=== PATIENT | female | born 1990 | race American Indian/Alaskan Native ===

== ENCOUNTER 2017-06-11 20:04 | Emergency (ER) | payer SELFPAY ==
[2017-05-15 14:05] VITALS: BMI 35.0
--- NOTE | 2017-06-11 21:27 | OBHP ---
Datetime: 06/11/2017 21:10 IP Adm Impression: , intrauterine IP Admit Plan: Discharge home Admit Comment, IP Provider: 27 yo at 34+4 wks w/ EDC 07/19/2017 w/ pubic symphysis separatio n who reports that she has a sharp piecing pain in the vagina that started on 06/03/2017. Pt reports that she was dancing at her baby shower on 06/03/2017. Pt reports that she took tylenol the day aft er the shower w/ no relief. Pt reports that she is wearing a maternity brace but is considering span x for a tighter brace. Pt also reports that she may talk to Dr. Gonzalez, her OB about stopping wor k soon due to her pain. 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 N ST reactive. Rec that she rest, consider applying ice or heat to her pubic symphysis for relief, als o t/c seeing PT. Pt will continue using brace and may see if spanx are a better brace. Extremities - PN: Normal Abdomen - PN: Normal General - PN: Normal FHR - Baseline A Provider: 140's Contraction Comments Provider: occasional/ artifact EGA AdmitDate IP: 34.4 Vital Signs Provider: Reviewed IP Chief Complaint: Maternal discomfort NICHD Variability Prov Fetus A: Moderate 6-25bpm NICHD Accel Fetus A IP Provider: 15X15 NICHD Decel Fetus A IP Provider: None Dilatation, Provider: 0 Effacement, Provider: 0 Station, Provider: -3 Genitourinary Exam: Normal
[2017-06-12 02:12] VITALS: BP 127/69; PULSE 75; RESP 20; TEMP 98.3; O2SAT 99
== END 2017-06-11 21:05 | disposition home or self-care (01) ==
LOC: H.EROB2 20:04
DX: O26.93 Pregnancy related conditions, unspecified, third trimester (principal); R10.2 Pelvic and perineal pain; O09.93 Supervision of high risk pregnancy, unspecified, third trimester; Z3A.34 34 weeks gestation of pregnancy

== ENCOUNTER 2017-06-20 11:33 | Emergency (ER) | payer SELFPAY ==
[2017-06-20 12:29] VITALS: BMI 37.9
[2017-06-20 12:59] LABS: RBC URINE 3 /hpf (0-3); TRANSITIONAL EPITHIAL 5 /hpf (0-3); URINE BACTERIA FEW (<OCC); URINE BILIRUBIN NEGATIVE (NEGATIVE); URINE BLOOD SMALL (NEGATIVE); URINE COLOR YELLOW (YELLOW); URINE GLUCOSE (UA) NEG (Normal); URINE KETONE NEGATIVE (NEGATIVE); URINE LEUKOCYTE ESTERASE LARGE Leu/uL (Negative); URINE PROTEIN 30 mg/dL (NEGATIVE); URINE UROBILINOGEN 0.2-1.0 mg/dL (0.2-1.0); WBC URINE 9 /hpf (0-5)
[2017-06-20 19:12] VITALS: BP 126/66; PULSE 68; O2SAT 98
--- NOTE | 2017-06-21 06:54 | OBDCSUM ---
Datetime: 06/20/2017 13:18 Discharge Instructions, Provider: Routine instructions given Discharge Diagnosis, Provider: False Labor - Undelivered Discharge Comment, Provider: BP rev'd...spoke to 5 office They will call pt for appt next week. P re-eclampsia warning
== END 2017-06-20 13:30 | disposition home or self-care (01) ==
LOC: H.EROB2 11:33
DX: O47.03 False labor before 37 completed weeks of gestation, third trimester (principal); Z3A.35 35 weeks gestation of pregnancy; O26.93 Pregnancy related conditions, unspecified, third trimester; R10.2 Pelvic and perineal pain

== ENCOUNTER 2017-07-11 00:12 | Inpatient (IN) | payer BC ==
[2017-07-11 00:43] VITALS: BMI 38.9
[2017-07-11] MEDS ORDERED: Nalbuphine 20 mg/ml Inj (1 ml) IVP PRN (00:47)
--- NOTE | 2017-07-11 01:25 | OBHP ---
Datetime: 07/11/2017 01:24 IP Adm Impression: Term, intrauterine IP Admit Plan: Admit to unit Admit Comment, IP Provider: CHIEF COMPLAINT: LOF, CTX HPI: 27 yo at 38.6 wks GA with EDC by us + ROM, FM, CTX She shares that 2 hours prior to arriving, she experienced LOF like water gushing from her vagina, approximately 30 minutes after, she began experiencing contractions approximately every 5 minutes. last U/06/27/2017 last visit 07/11/2017 GBS neg PNC: Dr. 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 Lungs: clear to auscultation bilaterally, no wheezing Abdomen: nontender, gravid CVA: negative Lower extremities: negative for pitting edema SSE/PELVIC EXN: pooling of clear fluid MONITOR: Variablity: moderate: 6-25 bpm ACC: 15x15 DECC: none FHR: 170 ASSESSMENT: 27 yo IUP at 38.6 wks with h/o asthma admitted for normal progression of labor. PLAN:cbc, t_s, hiv, rpr, Case d/w Dr. Mimi Bob MD Family Medicine, PGY1 OB Hospitalist Addendum: Pt seen and examined by me. 27 yo at 38+6 wks c/o LOF at 10:07 p m and ctxns started at 11 pm. Gen'l: pt appears uncomfortable, grossly ruptured for clear fluid. VE : 1-2/ 70/-2. Pt admitted to L_D. Will give nubaine for pain. GBS negative. FHT reactive. (ES) Extremities - PN: Normal Abdomen - PN: Normal Back - PN: Normal Lungs - PN: Normal Heart - PN: Normal Neurologic - PN: Normal General - PN: Normal FHR - Baseline A Provider: 140's Amniotic Fluid Color, Provider: Clear Membranes, Provider: Ruptured Nitrazine Provider: Positive EGA AdmitDate IP: 38.6 IP Indication for Induction: Not Applicable IP Chief Complaint: Uterine contractions; Suspected ruptured membranes NICHD Variability Prov Fetus A: Moderate 6-25bpm NICHD Accel Fetus A IP Provider: 15X15 FHR Category Provider Fetus A: Category I NICHD Decel Fetus A IP Provider: None Dilatation, Provider: 1-2 Effacement, Provider: 70 Station, Provider: -2 Genitourinary Exam: Normal Datetime: 07/11/2017 00:15 Pelvic Type - PN: Adequate Breast - PN: Not Done Thyroid - PN: Not Done HEENT - PN: Normal Presentation-Admit: Vertex Gestation - Est Wks by US: 38.6 Pool Provider: Positive Vital Signs Provider: Reviewed DTRs - PN: Not Done Datetime: 06/20/2017 12:00 Comments, ACOG Physical Exam: ROS: General: no fatigue; no weakness HEENT: no CARRILLO; no visual dist RESP: no cough; no SOB CV: no CP; no palpitations GI: no N/V/D : no F/U/D MS: no joint pain IP Hx Assessment: The History has been Reviewed and is Current
--- NOTE | 2017-07-11 01:28 | OBADHP ---
Datetime: 07/11/2017 01:24 Admit Comment, IP Provider: CHIEF COMPLAINT: LOF, CTX HPI: 27 yo at 38.6 wks GA with EDC by us + ROM, FM, CTX She shares that 2 hours prior to arriving, she experienced LOF like water gushing from her vagina, approximately 30 minutes after, she began experiencing contractions approximately every 5 minutes. last U/06/27/2017 last visit 07/11/2017 GBS neg PNC: Dr. 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 Lungs: clear to auscultation bilaterally, no wheezing Abdomen: nontender, gravid CVA: negative Lower extremities: negative for pitting edema SSE/PELVIC EXN: pooling of clear fluid MONITOR: Variablity: moderate: 6-25 bpm ACC: 15x15 DECC: none FHR: 170 ASSESSMENT: 27 yo IUP at 38.6 wks with h/o asthma admitted for normal progression of labor. PLAN:cbc, t_s, hiv, rpr, Case d/w Dr. Mimi Bob MD Family Medicine, PGY1 OB Hospitalist Addendum: Pt seen and examined by me. 27 yo at 38+6 wks c/o LOF at 10:07 p m and ctxns started at 11 pm. Gen'l: pt appears uncomfortable, grossly ruptured for clear fluid. VE : 1-2/ 70/-2. Pt admitted to L_D. Will give nubaine for pain. GBS negative. FHT reactive. (ES) Extremities - PN: Normal Abdomen - PN: Normal Back - PN: Normal Lungs - PN: Normal Heart - PN: Normal Neurologic - PN: Normal General - PN: Normal FHR - Baseline A Provider: 140's Amniotic Fluid Color, Provider: Clear Membranes, Provider: Ruptured Nitrazine Provider: Positive IP Chief Complaint: Uterine contractions; Suspected ruptured membranes NICHD Variability Prov Fetus A: Moderate 6-25bpm NICHD Accel Fetus A IP Provider: 15X15 FHR Category Provider Fetus A: Category I NICHD Decel Fetus A IP Provider: None Dilatation, Provider: 1-2 Effacement, Provider: 70 Station, Provider: -2 Genitourinary Exam: Normal EGA AdmitDate IP: 38.6 IP Adm Impression: Term, intrauterine IP Admit Plan: Admit to unit Datetime: 07/11/2017 00:15 Pelvic Type - PN: Adequate Breast - PN: Not Done Thyroid - PN: Not Done HEENT - PN: Normal Presentation-Admit: Vertex Gestation - Est Wks by US: 38.6 Pool Provider: Positive Vital Signs Provider: Reviewed DTRs - PN: Not Done Datetime: 06/20/2017 12:00 Comments, ACOG Physical Exam: ROS: General: no fatigue; no weakness HEENT: no CARRILLO; no visual dist RESP: no cough; no SOB CV: no CP; no palpitations GI: no N/V/D : no F/U/D MS: no joint pain IP Hx Assessment: The History has been Reviewed and is Current Datetime: 06/11/2017 21:10 Contraction Comments Provider: occasional/ artifact
[2017-07-11 01:53] LABS: BASO # 0.1 K/uL (0.0-0.2); BASO % 0.8 % (0.0-2.0); EOS # 0.1 K/uL (0.0-0.7); EOS % 0.8 % (0.0-4.0); LYMPH # 2.8 K/uL (1.0-4.3); LYMPH % 32.1 % (20.0-40.0); MEAN CELL VOLUME 86.3 fl (81.0-99.0); MEAN CORPUSCULAR HEMOGLOBIN 28.2 pg (27.0-31.0); MEAN CORPUSCULAR HGB CONC 32.7 g/dL (33.0-37.0); MEAN PLATELET VOLUME 10.6 fl (7.2-11.7); MONO # 0.7 K/uL (0.0-0.8); MONO % 8.4 % (0.0-10.0); NEUT % 57.9 % (50.0-75.0); RBC 4.24 Mil/uL (3.80-5.20); RED CELL DISTRIBUTION WIDTH 14.8 % (11.5-14.5); WHITE BLOOD COUNT 8.6 K/uL (4.8-10.8)
[2017-07-11] MEDS: Lactated Ringer's 1,000 ML IV SCH ×2 (03:50→04:10)
[2017-07-11] MEDS ORDERED: Fentanyl/Bupivacaine HCl 250 ML EPI ONE (04:28)
[2017-07-11] MEDS ORDERED: Bupivacaine HCl 0.25% PF (10 ml) Inj ONE (04:29)
[2017-07-11] MEDS ORDERED: Lactated Ringer's 1,000 ML IV SCH (05:15)
[2017-07-11] MEDS ORDERED: Oxytocin 30 UNITS in Sodium Chloride 0.9% 500 ML IV SCH (08:30)
--- NOTE | 2017-07-11 12:07 | OBPN ---
Datetime: 07/11/2017 12:00 IP Progress Impression: Normal progression of labor; Reassuring heart rate IP Informed Consent Obtain: Vaginal Delivery; Risks, Benefits and Alternatives Discussed IP Progress Plan: Continue present management; Augmentation Pool Provider: Positive Membranes, Provider: Ruptured Amniotic Fluid Color, Provider: Clear Contraction Comments Provider: 2-4m FHR - Baseline A Provider: 150 Presentation-Admit: Vertex NICHD Accel Fetus A IP Provider: 15X15 FHR Category Provider Fetus A: Category II NICHD Variability Prov Fetus A: Moderate 6-25bpm Dilatation, Provider: 6 Effacement, Provider: 100 Station, Provider: 0 NICHD Decel Fetus A IP Provider: Early Datetime: 07/11/2017 08:15 IP Progress Impression Other: Latent phase of labor IP Progress Note Comment: Last sono jul 06 7lb 10oz She was admitted by Dr Le. CHARLENE at term. 3cm earlier. A: Latent phase of labor PLAN: C chart rev'd Discussion with patient about labor, delivyer and pain management. agreed to Pitocin augmentation Datetime: 07/11/2017 01:24 Nitrazine Provider: Positive Datetime: 07/11/2017 00:15 Gestation - Est Wks by US: 38.6 Vital Signs Provider: Reviewed
[2017-07-11] MEDS ORDERED: Oxycodone/Acetaminophen 5/325 mg Tab PO PRN (16:06)
[2017-07-11] MEDS ORDERED: Oxytocin 30 UNITS in Sodium Chloride 0.9% 500 ML IV ONE (17:06)
[2017-07-11] MEDS ORDERED: Benzocaine/Menthol SPRAY TOP PRN (21:13)
[2017-07-12 07:08] LABS: MEAN CORPUSCULAR HEMOGLOBIN 28.8 pg (27.0-31.0); MEAN CORPUSCULAR HGB CONC 33.9 g/dL (33.0-37.0); RBC 3.47 Mil/uL (3.80-5.20); RED CELL DISTRIBUTION WIDTH 15.2 % (11.5-14.5); WHITE BLOOD COUNT 13.7 K/uL (4.8-10.8)
--- NOTE | 2017-07-12 07:25 | OBDS ---
DELIVERY PERSONNEL Delivery Doctor: Prisca Bazan DO Telegraph Inspector: Nelia Yip RN Anesthesiologist: Resident: na MATERNAL INFORMATION Delivery Anesthesia: Local; Epidural Medications in Delivery: Pitocin 30 unit in 500cc LR Estimated Blood Loss (ml): 200 Placenta Cultured: No Maternal Complications: None RN Comments: tolerated well by pt.Delivery attended by .No acute distress noted. Provider Comments: Over intact perineum, of live infant from cephalic presentation. was crying spontaneously and bulb suctioned - 9,9. Delayed cord clamping and [id number] were do ne. Placenta was delivered intact spontaneously. She remained stable. EBL 200cc LABOR SUMMARY EDC: 07/19/2017 00:00 No. Babies in Womb: 1 Attempted: No Labor Anesthesia: Epidural LABOR INFORMATION Reason for Induction: Not Applicable Onset of Labor: 07/11/2017 04:00 Complete Dilatation: 07/11/2017 13:00 Oxytocin: Augmentation Group B Beta Strep: Negative Antibiotics # of Doses: 0 Antibiotics Time of Last Dose: na Steroids Given: None Reason Steroids Not Administered: Not Applicable MEMBRANES Membranes Rupture Method: Spontaneous Rupture of Membranes: 07/10/2017 22:07 Amniotic Fluid Color: Clear Amniotic Fluid Amount: Small Amniotic Fluid Odor: Normal VAGINAL DELIVERY Episiotomy: None Laceration Extension: First Degree Laceration Type: Perineal Laceration Repair: Yes Laceration Repair Note: 1% Lidocaine was infiltrated (3-4cc). First degree perineal laceration was repaired with 2.0 Vicryl Rapide suture. Initial Vag Sponge Count: 5 Final Vag Sponge Count: 5 Initial Vag Sharps Count: 3 Final Vag Sharps Count: 3 Sponge Count Correct: Yes Sharps Count Correct: Yes Count Comment: one syringe 3 suture needles 5 lap pads BABY A INFORMATION Delivery Date/Time: 07/11/2017 15:41 Method of Delivery: Vaginal Born in Route : No : N/A Forceps: N/A Vacuum Extraction: N/A Shoulder Dystocia : No SHOULDER DYSTOCIA BABY A Delivery Date/Time: 07/11/2017 15:41 PRESENTATION/POSITION BABY A Presentation: Cephalic Breech Presentation: N/A PLACENTA INFORMATION BABY A Placenta Delivery Time : 07/11/2017 15:54 Placenta Method of Delivery: Spontaneous Placenta Status: Delivered SCORES BABY A Heart Rate 1 min: >100 bpm Resp Effort 1 min: Good Cry Reflex Irritability 1 min: Cough or Sneeze or Pulls Away Muscle Tone 1 min: Active Motion Color 1 min: Body [place], Extremities Blue Resuscitation Effort 1 min: Tactile Stimulation Heart Rate 5 min: >100 bpm Resp Effort 5 min: Good Cry Reflex Irritability 5 min: Cough or Sneeze or Pulls Away Muscle Tone 5 min: Active Motion Color 5 min: Body [place], Extremities Blue Resuscitation Effort 5 min: Tactile Stimulation INFORMATION BABY A Gestational Age at Delivery: 38.6 Gestational Status: Term Infant Outcome : Liveborn Infant Condition : Stable Infant Sex: Female IDENTIFICATION/MEDS BABY A ID Band Number: [id number] ID Band Location: Left Leg; Left Arm Vitamin K Given : Not Given Erythromycin Given: Not Given WEIGHT/LENGTH BABY A Birthweight (gms): 3105 Infant Length Inches: 19.50 CORD INFORMATION BABY A No. 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
--- NOTE | 2017-07-12 07:26 | OBDS ---
DELIVERY PERSONNEL Delivery Doctor: Prisca Bazan DO Senior Education Specialist: Nelia Yip RN Anesthesiologist: Resident: na MATERNAL INFORMATION Delivery Anesthesia: Local; Epidural Medications in Delivery: Pitocin 30 unit in 500cc LR Estimated Blood Loss (ml): 200 Placenta Cultured: No Maternal Complications: None RN Comments: tolerated well by pt.Delivery attended by .No acute distress noted. Provider Comments: Over intact perineum, of live infant from cephalic presentation. was crying spontaneously and bulb suctioned - 9,9. Delayed cord clamping and [id number] were do ne. Placenta was delivered intact spontaneously. She remained stable. EBL 200cc LABOR SUMMARY EDC: 07/19/2017 00:00 EDC: 07/19/2017 00:00 EDC: 07/19/2017 00:00 No. Babies in Womb: 1 Attempted: No Labor Anesthesia: Epidural LABOR INFORMATION Reason for Induction: Not Applicable Onset of Labor: 07/11/2017 04:00 Complete Dilatation: 07/11/2017 13:00 Oxytocin: Augmentation Group B Beta Strep: Negative Antibiotics # of Doses: 0 Antibiotics Time of Last Dose: na Steroids Given: None Reason Steroids Not Administered: Not Applicable MEMBRANES Membranes Rupture Method: Spontaneous Membranes Rupture Method: Spontaneous Membranes Rupture Method: Spontaneous Rupture of Membranes: 07/10/2017 22:07 Rupture of Membranes: 07/10/2017 22:07 Rupture of Membranes: 07/10/2017 22:07 Length of Rupture (hrs): 17.57 Length of Rupture (hrs): 17.57 Length of Rupture (hrs): 17.57 Amniotic Fluid Color: Clear Amniotic Fluid Color: Clear Amniotic Fluid Color: Clear Amniotic Fluid Amount: Small Amniotic Fluid Amount: Small Amniotic Fluid Amount: Moderate Amniotic Fluid Odor: Normal Amniotic Fluid Odor: Normal Amniotic Fluid Odor: Normal STAGES OF LABOR Stage 1 hrs: 9 Stage 1 min: 0 Stage 2 hrs: 2 Stage 2 min: 41 Stage 3 hrs: 0 Stage 3 min: 13 Total Time in Labor hrs: 11 Total Time in Labor min: 54 VAGINAL DELIVERY Episiotomy: None Laceration Extension: First Degree Laceration Type: Perineal Laceration Repair: Yes Laceration Repair Note: 1% Lidocaine was infiltrated (3-4cc). First degree perineal laceration was repaired with 2.0 Vicryl Rapide suture. Initial Vag Sponge Count: 5 Final Vag Sponge Count: 5 Initial Vag Sharps Count: 3 Final Vag Sharps Count: 3 Sponge Count Correct: Yes Sharps Count Correct: Yes Count Comment: one syringe 3 suture needles 5 lap pads BABY A INFORMATION Delivery Date/Time: 07/11/2017 15:41 Method of Delivery: Vaginal Born in Route : No : N/A Forceps: N/A Vacuum Extraction: N/A Shoulder Dystocia : No SHOULDER DYSTOCIA BABY A Delivery Date/Time: 07/11/2017 15:41 PRESENTATION/POSITION BABY A Presentation: Cephalic Breech Presentation: N/A PLACENTA INFORMATION BABY A Placenta Delivery Time : 07/11/2017 15:54 Placenta Method of Delivery: Spontaneous Placenta Status: Delivered SCORES BABY A Heart Rate 1 min: >100 bpm Resp Effort 1 min: Good Cry Reflex Irritability 1 min: Cough or Sneeze or Pulls Away Muscle Tone 1 min: Active Motion Color 1 min: Body [place], Extremities Blue Resuscitation Effort 1 min: Tactile Stimulation SCORE 1 MIN: 9 Heart Rate 5 min: >100 bpm Resp Effort 5 min: Good Cry Reflex Irritability 5 min: Cough or Sneeze or Pulls Away Muscle Tone 5 min: Active Motion Color 5 min: Body [place], Extremities Blue Resuscitation Effort 5 min: Tactile Stimulation SCORE 5 MIN: 9 INFANT INFORMATION BABY A Gestational Age at Delivery: 38.6 Gestational Status: Term Infant Outcome : Liveborn Condition : Stable Sex: Female IDENTIFICATION/MEDS BABY A ID Band Number: [id number] ID Band Location: Left Leg; Left Arm Vitamin K Given : Not Given Erythromycin Given: Not Given WEIGHT/LENGTH BABY A Infant Birthweight (gms): 3105 Weight (lb): 6 Weight (oz): 13 Length Inches: 19.50 Infant Length cms: 49.5 CORD INFORMATION BABY A No. Cord Vessels: 3 Nuchal Cord : N/A Cord Blood Taken: Yes Suction: Mouth ASSESSMENT BABY A Infant Complications: None Physical Findings at Delivery: Within Normal Limits Infant Respirations: Appears Normal Electrical Products Engineer/ALS Called : No Care By: IsabelRn Transferred To: Remains with Mother
--- NOTE | 2017-07-12 12:01 | OBPPN ---
Datetime: 07/12/2017 11:58 PP Pain Prov: Within normal limits PP Nausea Prov: Denies PP Flatus Prov: Yes PP Breasts Prov: Not Done PP Heart Prov: Normal PP Lungs Prov: Normal PP Abdomen/Uterus Prov: Normal PP Lochia Prov: Not Done PP Vulva/Perineum Prov: Not Done PP CVA Tenderness Prov: Normal PP Extremities Prov: Normal PP Impression Prov: Normal progression PP Plan Prov: Continue present management PP Progress Note Prov: Patient doing well ambulating tolerating diet and voiding without difficulty reports minimal lochia Vital signs stable afebrile Uterus firm below the umbilicus Extremities no Homans Encourage ambulation, regular diet analgesia as needed, anticipate discharge in a.m.
[2017-07-13] MEDS ORDERED: PRENATAL VIT CALC IRON FOLIC PO SCH (09:00)
[2017-07-13] MEDS ORDERED: Prenatal Multivit/Folic Acid/Iron Tab PO SCH (09:00)
[2017-07-13 22:04] VITALS: BP 138/79; PULSE 74; RESP 20; TEMP 97.7; O2SAT 100
--- NOTE | 2017-07-14 09:58 | OBDCSUM ---
Datetime: 07/13/2017 10:56 Discharge Instructions, Provider: Routine instructions given Discharge Diagnosis, Provider: Term Delivered Contraception discussed, Prov: Yes
--- NOTE | 2017-07-14 09:58 | OBPPN ---
Datetime: 07/13/2017 09:55 PP Pain Prov: Within normal limits PP Nausea Prov: Denies PP Flatus Prov: Yes PP Breasts Prov: Normal PP Heart Prov: Normal PP Lungs Prov: Normal PP Abdomen/Uterus Prov: Normal PP Lochia Prov: Normal PP Vulva/Perineum Prov: Normal PP CVA Tenderness Prov: Normal PP Extremities Prov: Normal PP C/S Incision Prov: Not Applicable PP Impression Prov: Normal progression PP Plan Prov: Continue present management; Discharge PP Progress Note Prov: day #2 status post normal spontaneous vaginal delivery, recovering well Plan to discharge patient home today with precautions Patient will return to office in 6 weeks for checkup IP PP Procedures: None Vital Signs Provider PP: Reviewed; Within Normal Limits
== END 2017-07-13 14:35 | disposition home or self-care (01) | DRG 775 ==
LOC: H.EROB2 00:12 → H.L&D 00:54 → H.OB/GYN 18:04
PROVIDERS: ADMIT Obstetrics & Gynecology; ATTEND Obstetrics & Gynecology
PROC: 10E0XZZ Delivery of Products of Conception, External Approach (ICD-10-PCS; principal; 2017-07-11)
PROC: 0HQ9XZZ Repair Perineum Skin, External Approach (ICD-10-PCS; 2017-07-11)
PROC: 4A1HXCZ Monitoring of Products of Conception, Cardiac Rate, External Approach (ICD-10-PCS; 2017-07-11)
DX: O99.52 Diseases of the respiratory system complicating childbirth (principal); J45.909 Unspecified asthma, uncomplicated; O70.0 First degree perineal laceration during delivery; Z37.0 Single live birth; Z3A.38 38 weeks gestation of pregnancy; Z86.19 Personal history of other infectious and parasitic diseases